=== PATIENT | female | born 1995 | race Caucasian/White ===

== ENCOUNTER 2022-10-07 07:49 | Emergency (ER) | payer OTHER, MEDICAID ==
[~2022-10-07] VITALS: Ht 165.1 cm; Wt 68.0 kg
[2022-10-07 07:54] VITALS: BP 136/84
[2022-10-07] MEDS ORDERED: ACETAMINOPHEN 325MG TABLET PO ONE (08:30)
[2022-10-07] MEDS ORDERED: TOPUD PO (10:07)
== END 2022-10-07 10:59 | disposition home or self-care (01) ==
LOC: ER 07:49
DX: S00.81XA Abrasion of other part of head, initial encounter (principal); V49.49XA Driver injured in collision with other motor vehicles in traffic accident, initial encounter; Y93.89 Activity, other specified; Y92.89 Other specified places as the place of occurrence of the external cause; Y99.8 Other external cause status
CPT/HCPCS: 73030; 73552; 81025; 99284